=== PATIENT | female | born 1980 | race African-American/Black ===

== ENCOUNTER 2017-09-09 00:29 | Emergency (ER) | payer SELFPAY ==
[~2017-09-09] VITALS: Ht 172.7 cm; Wt 63.5 kg
[2017-09-09] MEDS ORDERED: MECLIZINE HCL 25 MG TABLET PO ONE ×2 (01:45→04:45)
[2017-09-09] MEDS ORDERED: IV NORMAL SALINE 1000 ML BAG IV ONE (01:45)
[2017-09-09] MEDS ORDERED: ONDANSETRON 4 MG/2 ML VIAL IV ONE (01:45)
[2017-09-09 02:23] LABS: BILIRUBIN,DIRECT 0.1 mg/dL (0.0-0.2); BILIRUBIN,TOTAL 0.5 mg/dL (0.2-1.0); POTASSIUM 3.9 mmol/L (3.5-5.1); TOTAL PROTEIN, SERUM 7.1 g/dL (6.4-8.2)
--- NOTE | 2017-09-09 02:27 | NUR ---
PT IS IN BED. PT IS RESTING W/ EYES CLOSED. BREATH SOUNDS ARE REGULAR AND UNLABORED.
[2017-09-09 02:29] LABS: BASOPHILS # (AUTO) 0.1 K/uL (0.0-8.0); EOSINOPHILS # (AUTO) 0.1 K/uL (0.0-0.7); EOSINOPHILS % (AUTO) 1.6 % (0.0-7.0); HEMATOCRIT 32.4 % (31.2-41.9); HEMOGLOBIN 10.9 g/dL (10.9-14.3); LYMPHOCYTES # (AUTO) 2.4 K/uL (20.0-40.0); LYMPHOCYTES % (AUTO) 34.6 % (20.5-51.5); MEAN CORPUSCULAR HEMOGLOBIN 27.9 uug (24.7-32.8); MEAN CORPUSCULAR HGB CONC 34 g/dL (32.3-35.6); MEAN CORPUSCULAR VOLUME 83.4 fL (75.5-95.3); MONOCYTES # (AUTO) 0.6 K/uL (2.0-10.0); MONOCYTES % (AUTO) 7.9 % (0.0-11.0); NEUTROPHILS # (AUTO) 3.9 K/uL (1.8-8.9); NEUTROPHILS % (AUTO) 54.9 % (38.5-71.5); PLATELET COUNT (AUTO) 415 K/uL (179-408); RED BLOOD CELL COUNT(AUTO) 3.89 MIL/uL (3.63-4.92)
[2017-09-09] MEDS ORDERED: MECLIZINE HCL 25 MG TABLET ONE ×2 (02:29→05:16)
[2017-09-09] MEDS ORDERED: ONDANSETRON 4 MG/2 ML VIAL ONE (02:29)
--- NOTE | 2017-09-09 05:36 | NUR ---
PT IN NO DISTRESS, ABLE TO AMBULATE IN A STEADY GAIT, DENIES DIZZINESS, LIGHTHEADNESS, CP,SOB, PT ADVISED TO F/U WITH PMD OR RETURN TO ER FOR WORSENING OF SYMPTOMS, VERBALIZES UNDERSTANDING,RX GIVEN TO PT.
== END 2017-09-09 05:45 | disposition home or self-care (01) ==
LOC: ER 00:31
DX: H81.10 Benign paroxysmal vertigo, unspecified ear (principal); F41.9 Anxiety disorder, unspecified
CPT/HCPCS: 36415; 84703; 85025; 93005; A4663; J2405; J8597

== ENCOUNTER 2017-09-09 11:20 | Emergency (ER) | payer SELFPAY ==
[~2017-09-09] VITALS: Ht 172.7 cm; Wt 63.5 kg
--- NOTE | 2017-09-09 11:25 | NUR ---
Attempted to traige pt, pt's has a dog with her. I explained the hospital policy regarding pets, pt wishes to speak with the supervisor tree trimming. Nursing supervisor tree trimming notified and will come speak with the pt.
--- NOTE | 2017-09-09 12:00 | NUR ---
Per nursing production assembly supervisor Haroldo he spoke with the patient and it is okay for the patient to have her dog with her while being treated in the emergency room.
--- NOTE | 2017-09-09 12:25 | NUR ---
Pt was triaged and placed back in the ER waiting room, there are no ER beds available at this time.
--- NOTE | 2017-09-09 14:04 | NUR ---
Called in waiting room, no answer
--- NOTE | 2017-09-09 14:25 | NUR ---
called to enter main ER rooms, no answer
--- NOTE | 2017-09-09 17:30 | NUR ---
MD is at bedside evaluating patient, pending MD orders at this time.
[2017-09-09] MEDS: MECLIZINE HCL 25 MG TABLET PO ONE (17:36)
[2017-09-09] MEDS ORDERED: MECLIZINE HCL 25 MG TABLET ONE (17:52)
--- NOTE | 2017-09-09 17:52 | NUR ---
ekg delay due pt in the bathroom
[2017-09-09 18:03] LABS: BASOPHILS # (AUTO) 0.1 K/uL (0.0-8.0); BASOPHILS % (AUTO) 0.9 % (0.0-2.0); EOSINOPHILS # (AUTO) 0.2 K/uL (0.0-0.7); EOSINOPHILS % (AUTO) 1.8 % (0.0-7.0); HEMATOCRIT 34.7 % (31.2-41.9); HEMOGLOBIN 11.3 g/dL (10.9-14.3); LYMPHOCYTES # (AUTO) 2.9 K/uL (20.0-40.0); LYMPHOCYTES % (AUTO) 32.3 % (20.5-51.5); MEAN CORPUSCULAR HEMOGLOBIN 27.4 uug (24.7-32.8); MEAN CORPUSCULAR HGB CONC 33 g/dL (32.3-35.6); MONOCYTES # (AUTO) 0.7 K/uL (2.0-10.0); MONOCYTES % (AUTO) 7.7 % (0.0-11.0); NEUTROPHILS # (AUTO) 5.2 K/uL (1.8-8.9); NEUTROPHILS % (AUTO) 57.3 % (38.5-71.5); PLATELET COUNT (AUTO) 471 K/uL (179-408); RED BLOOD CELL COUNT(AUTO) 4.13 MIL/uL (3.63-4.92); WHITE BLOOD COUNT (AUTO) 9.1 K/uL (3.8-11.8)
[2017-09-09 18:10] LABS: CREATININE 1.4 mg/dL (0.6-1.3); POTASSIUM 4.1 mmol/L (3.5-5.1)
[2017-09-09 18:14] LABS: BILIRUBIN,TOTAL 0.4 mg/dL (0.2-1.0); TOTAL PROTEIN, SERUM 7.5 g/dL (6.4-8.2)
--- NOTE | 2017-09-09 19:10 | NUR ---
pt resting in the room. no sign of distress. hands off report given to ryne pittman
--- NOTE | 2017-09-09 19:40 | NUR ---
Patient discharged to home in stable conditon. Written and verbal after care instructions given. Patient verbalizes understanding of instructions.
[2017-09-09 20:05] VITALS: BP 152/82
== END 2017-09-09 19:39 | disposition home or self-care (01) ==
LOC: ER 11:20
DX: R42 Dizziness and giddiness (principal); F41.9 Anxiety disorder, unspecified
CPT/HCPCS: 36415; 71045; 85025; 93005; A4663; J8597

== ENCOUNTER 2017-10-01 15:25 | Emergency (ER) | payer SELFPAY ==
[~2017-10-01] VITALS: Ht 170.2 cm; Wt 65.8 kg
[2017-10-01] MEDS ORDERED: MECLIZINE HCL 25 MG TABLET PO ONE (16:45)
[2017-10-01] MEDS ORDERED: MECLIZINE HCL 25 MG TABLET ONE ×2 (16:52→17:19)
[2017-10-01] MEDS ORDERED: ONDANSETRON ODT 4 MG TAB.RAPDIS SL ONE (17:00)
[2017-10-01] MEDS ORDERED: ONDANSETRON ODT 4 MG TAB.RAPDIS ONE (17:19)
--- NOTE | 2017-10-01 17:52 | NUR ---
MSE COMPLETED, PT WAS D/C'SD APPROX 20 MIN AGO, HOWEVER SECURITY WAS CALLED. PT DID NOT WANT TO WAKE UP. PT THEN GOT HER BELONGINGS AMND AMBULATED W/O DIFF.
[2017-10-01 17:54] VITALS: BP 139/68
== END 2017-10-01 17:55 | disposition home or self-care (01) ==
LOC: ER 15:25
DX: H81.10 Benign paroxysmal vertigo, unspecified ear (principal)
CPT/HCPCS: A4663; J8597; Q0162

== ENCOUNTER 2017-10-04 03:08 | Emergency (ER) | payer MEDICAID ==
[~2017-10-04] VITALS: Ht 170.2 cm; Wt 68.0 kg
[2017-10-04] MEDS ORDERED: MECLIZINE HCL 25 MG TABLET PO ONE (05:30)
[2017-10-04] MEDS ORDERED: LORAZEPAM 0.5 MG TABLET PO ONE (05:30)
[2017-10-04] MEDS ORDERED: MECLIZINE HCL 25 MG TABLET ONE (05:31)
[2017-10-04] MEDS ORDERED: LORAZEPAM 0.5 MG TABLET ONE (05:32)
--- NOTE | 2017-10-04 05:41 | NUR ---
Patient discharged to home in stable conditon. Written and verbal after care instructions given. Patient verbalizes understanding of instructions. Patient able to ambulate unassisted with steady gait. Patient left with all of her personal belongings.
[2017-10-04 05:43] VITALS: BP 144/98
[2017-10-10] MEDS ORDERED: AMPICILLIN 1 G VIAL ONE (21:51)
[2017-10-10] MEDS ORDERED: FLUCONAZOLE 200 MG/100 ML PIGGYBACK ONE (21:52)
== END 2017-10-04 05:37 | disposition home or self-care (01) ==
LOC: ER 03:09
DX: F41.9 Anxiety disorder, unspecified (principal); R42 Dizziness and giddiness
CPT/HCPCS: A4663; J8597

== ENCOUNTER 2017-10-19 17:31 | Emergency (ER) | payer MEDICAID ==
[~2017-10-19] VITALS: Ht 170.2 cm; Wt 68.0 kg
[2017-10-19] MEDS ORDERED: LORAZEPAM 1 MG TABLET ONE (17:45)
[2017-10-19] MEDS ORDERED: MECLIZINE HCL 25 MG TABLET ONE (17:45)
[2017-10-19] MEDS ORDERED: LORAZEPAM 0.5 MG TABLET PO ONE (17:45)
[2017-10-19] MEDS ORDERED: MECLIZINE HCL 25 MG TABLET PO ONE (17:45)
--- NOTE | 2017-10-19 17:52 | NUR ---
Patient discharged to home in stable conditon. Written and verbal after care instructions given. Patient verbalizes understanding of instructions. Stressed follow up.
== END 2017-10-19 17:53 | disposition home or self-care (01) ==
LOC: ER 17:31
DX: F41.9 Anxiety disorder, unspecified (principal); R42 Dizziness and giddiness
CPT/HCPCS: A4663; J8597

== ENCOUNTER 2017-10-23 19:28 | Emergency (ER) | payer MEDICAID ==
[~2017-10-23] VITALS: Ht 170.2 cm; Wt 63.5 kg
--- NOTE | 2017-10-23 20:48 | NUR ---
Patient ambulated to ER, reports was at work, very stressful, started having anxiety/panic attack. Patient c/o anxiety, chills, and nausea, and generalized pain all over the body.
--- NOTE | 2017-10-23 21:00 | NUR ---
Dr. Licona at bedside for MSE.
[2017-10-23 21:34] LABS: BASOPHILS % (AUTO) 0.7 % (0.0-2.0); EOSINOPHILS # (AUTO) 0.3 K/uL (0.0-0.7); EOSINOPHILS % (AUTO) 4.5 % (0.0-7.0); HEMATOCRIT 30.3 % (31.2-41.9); LYMPHOCYTES # (AUTO) 2.8 K/uL (20.0-40.0); LYMPHOCYTES % (AUTO) 43.5 % (20.5-51.5); MEAN CORPUSCULAR HGB CONC 33 g/dL (32.3-35.6); MEAN CORPUSCULAR VOLUME 81.7 fL (75.5-95.3); MONOCYTES # (AUTO) 0.5 K/uL (2.0-10.0); MONOCYTES % (AUTO) 7.3 % (0.0-11.0); NEUTROPHILS # (AUTO) 2.8 K/uL (1.8-8.9); PLATELET COUNT (AUTO) 356 K/uL (179-408); WHITE BLOOD COUNT (AUTO) 6.4 K/uL (3.8-11.8)
[2017-10-23 21:40] LABS: POTASSIUM 3.5 mmol/L (3.5-5.1)
[2017-10-23 21:50] LABS: ETHANOL < 3 MG/DL (0-0)
--- NOTE | 2017-10-23 22:31 | NUR ---
Patient given written and verbal discharge instructions. Patient verbalizes understanding of instructions. Patient is ambulatory with steady gait. Refuses offer of residential placement. Patient given list of available shelters in surrounding area. VSS, no acute signs of distress, all belongings taken. Addendum: 10/23/17 at 2232 by [facility] IV site [email or web address]
[2017-10-23 22:35] VITALS: BP 136/77
== END 2017-10-23 22:36 | disposition home or self-care (01) ==
LOC: ER 19:28
DX: J06.9 Acute upper respiratory infection, unspecified (principal); R42 Dizziness and giddiness
CPT/HCPCS: 36415; 71045; 85025; 93005; A4663; G0480

== ENCOUNTER 2017-10-26 08:45 | Emergency (ER) | payer MEDICAID ==
[~2017-10-26] VITALS: Ht 170.2 cm; Wt 63.5 kg
[2017-10-26 09:44] LABS: BASOPHILS % (AUTO) 0.6 % (0.0-2.0); EOSINOPHILS # (AUTO) 0.2 K/uL (0.0-0.7); EOSINOPHILS % (AUTO) 2.7 % (0.0-7.0); LYMPHOCYTES # (AUTO) 2.2 K/uL (20.0-40.0); LYMPHOCYTES % (AUTO) 36.1 % (20.5-51.5); MEAN CORPUSCULAR HEMOGLOBIN 26.6 uug (24.7-32.8); MEAN CORPUSCULAR HGB CONC 33 g/dL (32.3-35.6); MEAN CORPUSCULAR VOLUME 81.4 fL (75.5-95.3); MONOCYTES # (AUTO) 0.4 K/uL (2.0-10.0); MONOCYTES % (AUTO) 7.2 % (0.0-11.0); NEUTROPHILS # (AUTO) 3.3 K/uL (1.8-8.9); NEUTROPHILS % (AUTO) 53.4 % (38.5-71.5); RED BLOOD CELL COUNT(AUTO) 4.34 MIL/uL (3.63-4.92); WHITE BLOOD COUNT (AUTO) 6.2 K/uL (3.8-11.8)
[2017-10-26 09:46] LABS: *BILIRUBIN,URIN NEGATIVE (NEGATIVE); *BLOOD, URINE NEGATIVE (NEGATIVE); *CLARITY,URINE CLEAR (CLEAR); *COLOR,URINE YELLOW (YELLOW); *KETONES,URINE NEGATIVE (NEGATIVE); *PROTEIN,URINE NEGATIVE (NEGATIVE); *UROBILINOGEN,URINE 0.2 E.U./dl (NORMAL); LEUKOCYTE ESTERASE ,URINE 1+ (NEGATIVE); NITRITE, URINE NEGATIVE (NEGATIVE); UGLUCOSE NEGATIVE (NEGATIVE)
[2017-10-26 09:48] LABS: *URINE HCG, QUAL NEGATIVE (NEGATIVE)
[2017-10-26 09:51] LABS: CARBON DIOXIDE 25 mmol/L (21-32); CHLORIDE 102 mmol/L (98-107); GLUCOSE 94 mg/dL (74-106); POTASSIUM 4.2 mmol/L (3.5-5.1); UREA NITROGEN, BLOOD 11 mg/dL (7-18)
[2017-10-26 09:54] LABS: ALANINE AMINOTRANSFERASE 47 U/L (14-59); ALKALINE PHOSPHATASE 89 U/L (50-136); ASPARTATE AMINOTRANSFERASE 34 U/L (15-37); BILIRUBIN,TOTAL 0.5 mg/dL (0.2-1.0); HEMATOCRIT 35.3 % (31.2-41.9); HEMOGLOBIN 11.5 g/dL (10.9-14.3); TOTAL PROTEIN, SERUM 7.8 g/dL (6.4-8.2)
[2017-10-26 09:55] LABS: PLATELET COUNT (AUTO) 483 K/uL (179-408)
[2017-10-26 09:59] LABS: BACTERIA,URINE FEW /HPF (NONE SEEN); RBC,URINE 0-3 /HPF (0-3); SQUAMOUS EPITHELIAL CELL,UR MANY /HPF (NONE SEEN)
[2017-10-26 10:00] LABS: ACETAMINOPHEN < 2.0 ug/mL (10-30)
[2017-10-26 10:08] LABS: BILIRUBIN,DIRECT 0.1 mg/dL (0.0-0.2); ETHANOL < 3 MG/DL (0-0)
[2017-10-26 10:08] LABS: *AMPHETAMINE, URINE NEGATIVE (NEGATIVE); *BARBITURATE, URINE NEGATIVE (NEGATIVE); *CANNABINOID, URINE NEGATIVE (NEGATIVE); *COCCAINE, URINE NEGATIVE (NEGATIVE); *OPIATE, URINE NEGATIVE (NEGATIVE); *PHENCYCLIDINE SCREEN,URINE NEGATIVE (NEGATIVE)
--- NOTE | 2017-10-26 10:56 | NUR ---
pt has been medically cleared, cristiano varela the PET called, pt sleeping, eyes closed.
--- NOTE | 2017-10-26 13:16 | NUR ---
CALLED [facility] APPROX 10 MIN AND INTACT HAD NOT INFORMED THEM REGARDING THE PT. JANICE FRAZIER JUST CALLED BACK AND STATED PT WAS ACCEPTED AND TO CALL FACILITY IN ABOUT 10 MIN.
--- NOTE | 2017-10-26 14:48 | NUR ---
VENANCIO RN CALLED BACK, SBAR REPORT GIVEN , PT THEN WAS SENT VIA [facility] TO FACILITY. PT WAS GIVEN COPY OF CHART, PT TOOK ALL BELONGINGS, AMBULATED W/O DIFF.
== END 2017-10-26 15:00 | disposition short-term general hospital (02) ==
LOC: ER 08:45
DX: R45.851 Suicidal ideations (principal); F41.9 Anxiety disorder, unspecified
CPT/HCPCS: 36415; 80307; 84703; 85025; A4663; G0480; G0480-TC

== ENCOUNTER 2021-12-04 20:04 | Emergency (ER) | payer MEDICAID, OTHER ==
--- NOTE | 2021-12-04 20:40 | NUR ---
PT CALLED [facility] TIMES IN WAITING ROOM AND OUTSIDE, NO ANSWER. PT LEFT WEITHOUT BEING SEEN BY ER DOCTOR.
== END 2021-12-04 20:55 | disposition left against medical advice (07) ==
LOC: ER 20:07
DX: Z53.21 Procedure and treatment not carried out due to patient leaving prior to being seen by health care provider (principal)

== ENCOUNTER 2021-12-05 20:53 | Emergency (ER) | payer OTHER ==
[~2021-12-05] VITALS: Ht 172.7 cm; Wt 63.5 kg
--- NOTE | 2021-12-05 22:36 | NUR ---
Patient arrived at the ER with c/o right hand pain that radiates to shoulder that started 2 days ago.
--- NOTE | 2021-12-05 22:49 | NUR ---
Dr. Ramírez on bedside for MSE.
--- NOTE | 2021-12-05 23:57 | NUR ---
Patient discharged to home in stable condition. Written and verbal after care instructions given. Patient verbalizes understanding of instructions. Stressed follow up or return to ER for worsening s/s. Patient reused to sign discharge papers. Patient ambulated fr the ER with steady gait. All belongings with patient.
[2021-12-06 00:07] VITALS: BP 105/60
== END 2021-12-05 23:57 | disposition home or self-care (01) ==
LOC: ER 20:57
DX: R20.2 Paresthesia of skin (principal); F41.9 Anxiety disorder, unspecified
CPT/HCPCS: 73130; A4663

== ENCOUNTER 2021-12-10 18:11 | Emergency (ER) | payer OTHER ==
[~2021-12-10] VITALS: Ht 172.7 cm; Wt 63.5 kg
--- NOTE | 2021-12-10 20:09 | NUR ---
PT AMBULATED TO ER STEADY GAIT C/O INTERMITTENT RT ARM PAIN RADIATING TO SHOULDER STARTED 7 DAYS AGO. PT SEEN 5 DAYS AGO FOR SAME COMPLAINT. PT A/O X4, NO SOB OR LABORED BREATHING, AFEBRILE. DENIES CP/PRESSURE. NO GI/ DISTRESS. CLEAR SPEECH, COMPLETE SENTENCES.
--- NOTE | 2021-12-10 20:40 | NUR ---
DR. DACOSTA AT BEDSIDE, MSE IN PROGRESS.
--- NOTE | 2021-12-10 20:46 | NUR ---
Patient eloped from facility. ER physician notified. Pt has refused for blood draw or any test/procedures recommended by ER physician. Steady gait. No changes in LOC.
== END 2021-12-10 20:48 | disposition left against medical advice (07) ==
LOC: ER 18:14
DX: R20.0 Anesthesia of skin (principal)
CPT/HCPCS: A4663

== ENCOUNTER 2021-12-29 05:16 | Emergency (ER) | payer OTHER ==
[~2021-12-29] VITALS: Ht 172.7 cm; Wt 63.5 kg
--- NOTE | 2021-12-29 05:27 | NUR ---
DR. NAJERA AT BEDSIDE, MSE IN PROGRESS.
[2021-12-29] MEDS ORDERED: IBUP-1955 PO (05:42)
--- NOTE | 2021-12-29 05:48 | NUR ---
Patient discharged to home in stable condition. Written and verbal after care instructions given. But refused to sign for discharge after care instruction, per patient she wants a holistic care without [facility], Dr. Rodriguez aware. Stressed follow up or return to ER for worsening s/s.
[2021-12-29 05:50] VITALS: BP 137/88
== END 2021-12-29 05:51 | disposition home or self-care (01) ==
LOC: ER 05:19
DX: M79.601 Pain in right arm (principal); M79.641 Pain in right hand
CPT/HCPCS: A4663

== ENCOUNTER 2024-01-25 03:55 | Emergency (ER) | payer SELFPAY ==
[~2024-01-25] VITALS: Ht 170.2 cm; Wt 63.5 kg
[~2024-01-25 03:55] MED LIST: IBUP-1955 PO
[2024-01-25 04:43] VITALS: BP 124/76; O2SAT 98
== END 2024-01-25 04:43 | disposition home or self-care (01) ==
LOC: ER 04:05
DX: L84 Corns and callosities (principal); B35.1 Tinea unguium; H92.02 Otalgia, left ear; G92.9 Unspecified toxic encephalopathy; M79.672 Pain in left foot; M79.671 Pain in right foot; Z79.1 Long term (current) use of non-steroidal anti-inflammatories (NSAID)
CPT/HCPCS: A4606; A4663